=== PATIENT | female | born 1995 | race Caucasian/White ===

== ENCOUNTER 2020-07-04 11:26 | Outpatient (RCR) | payer OTHER, SELFPAY ==
[2020-07-03] MEDS: BETAMETHASONE SOD PHOS/ACETATE 30 MG/5 ML VIAL 12 MG IM (11:42)
[2020-07-04] MEDS: BETAMETHASONE SOD PHOS/ACETATE 30 MG/5 ML VIAL 12 MG IM (12:25)
== END 2020-07-22 08:30 | disposition home or self-care (01) ==
LOC: ANHOBOP 11:26
PROVIDERS: PCP Family Medicine; Visit Provider Obstetrics & Gynecology
DX: O36.8990 Maternal care for other specified fetal problems, unspecified trimester, not applicable or unspecified (principal); Z3A.00 Weeks of gestation of pregnancy not specified
CPT/HCPCS: 96372; J0702

== ENCOUNTER 2020-07-17 11:28 | Observation (INO) | payer OTHER, SELFPAY ==
--- NOTE | 2020-07-17 14:00 | PC.NURSE ---
See NST number for charting prior to 1400.
[2020-07-17] MEDS: DEXTROSE 5%/LACTATED RINGERS 1,000 ML 999 ML IV CONT (14:07)
[2020-07-17] MEDS: NIFEdipine 30 MG TAB.ER.24 PO (14:08)
[2020-07-17 14:10] VITALS: BP 132/75; PULSE 101
[2020-07-17 14:15] VITALS: BMI 37.4
[2020-07-17 15:00] VITALS: BP 118/76; PULSE 98
--- NOTE | 2020-07-20 16:19 | PM.OBTRLD ---
OB - Triage/Final Diagnosis Visit Information Reason for evaluation: threatened labor Evaluation Baseline heart rate: 144 Variability: Average (6-10) monitor accelerations: Present monitor decelerations: None Cervical dilation (cm): 0 Cervical effacement (%): 0 station: -3 Comments: iv fluids tocolysis oral Final Diagnosis (1) Threatened premature labor affecting , less than 37 weeks in third trimester, antepartum: Code(s): O47.03 - False labor before 37 completed weeks of gestation, third trimester Status: Acute
== END 2020-07-17 15:30 | disposition home or self-care (01) ==
PROVIDERS: Admitting Provider Obstetrics & Gynecology; PCP Family Medicine; Visit Provider Obstetrics & Gynecology
DX: O47.03 False labor before 37 completed weeks of gestation, third trimester (principal); Z3A.34 34 weeks gestation of pregnancy
CPT/HCPCS: 59025; 76819; A9270; G0378; G0379; J7121

== ENCOUNTER 2020-08-14 12:12 | Outpatient (RCR) | payer OTHER, SELFPAY ==
[2020-06-12 13:48] VITALS: BP 123/68; PULSE 89
[2020-06-19 15:10] VITALS: BP 128/70; PULSE 88
[2020-06-26 15:19] VITALS: BP 116/71; PULSE 95
[2020-07-02 15:54] VITALS: BP 131/78; PULSE 112
[2020-07-03 10:39] LABS: Basophils Percent Auto 0.2 % (0.2-1.2); Eosinophils Absolute Auto 0.1 K/mm3 (0-0.3); Eosinophils Percent Auto 0.7 % (0-4.4); Hematocrit 37.3 % (37.0-47.0); Hemoglobin 12.7 g/dL (12.0-15.0); Immature Granulocyte Absolute 0.06 K/mm3 (0.00-0.031); Immature Granulocyte Percent A 0.5 % (0-0.5); Lymphocytes Absolute Auto 1.94 K/mm3 (0.9-3.2); Lymphocytes Percent Auto 17.2 % (18.3-44.2); Mean Corpuscular Hemoglobin 32.4 pg (26-34); Mean Corpuscular Volume 95.2 fl (80-100); Mean Platelet Volume 11.2 fl (7.4-10.4); Monocytes Absolute Auto 0.5 K/mm3 (0.1-0.6); Monocytes Percent Auto 4.5 % (2.6-8.5); Neutrophils Absolute Auto 8.7 K/mm3 (1.3-6.7); Neutrophils Percent Auto 76.9 % (45.5-73.1); Platelet Count Result 198 k/mm3 (150-375); Red Blood Count 3.92 M/mm3 (4.2-5.4); Red Cell Distribution Width 13.7 % (11.5-14.5); White Blood Count 11.3 K/mm3 (4.5-10.0)
[2020-07-03 11:01] LABS: Add Urine Microscopic? YES; Appearance Urine Clear (Clear); Bacteria Urine Trace /hpf; Bilirubin Urine Negative (Negative); Blood Urine Negative (Negative); Color Urine Straw (Yellow); Glucose Urine UA 1+ mg/dL (Negative); Ketones Urine Negative (Negative); Leukocyte Esterase Ur Negative LEU/UL (NEGATIVE); Nitrate Urine Negative (Negative); Protein Urine Negative (Negative); RBC Urine 0-2 /hpf (0-2); Squamous Epithelial Cell Urine Moderate /hpf (Few); Urobilinogen Urine Negative mg/dL (<2.0); WBC Urine 0-3 /hpf (0-3)
[2020-07-03 11:12] LABS: Alanine Aminotransferase 15 U/L (4-35); Albumin Level 3.4 g/dL (3.5-5.1); Alkaline Phosphatase 127 U/L (38-126); Anion Gap 8 mmol/L (8-16); Aspartate Amino Transferase 19 U/L (14-36); Bilirubin,Total 0.4 mg/dL (0.2-1.3); Blood Urea Nitrogen 4 mg/dL (7-17); Calcium 9.1 mg/dL (8.4-10.2); Carbon Dioxide 24 mmol/L (22-30); Chloride 105 mmol/L (98-107); Estimated Glomerular Filt Rate > 60; Glucose 114 mg/dL (65-105); Potassium 3.4 mmol/L (3.4-5.0); Sodium 137 mmol/L (137-145); Uric Acid 4.2 mg/dL (2.5-7.5)
[2020-07-03 11:24] LABS: Specific Grav Ur 1.004 (1.001-1.035)
[2020-07-03 11:50] VITALS: BP 131/82; PULSE 99
[2020-07-04 12:13] VITALS: BP 122/69; PULSE 102
[2020-07-07 13:12] VITALS: BP 125/74; PULSE 94
[2020-07-14 12:07] VITALS: BP 128/79; PULSE 103
[2020-07-17 13:17] VITALS: BP 122/72; PULSE 101
[2020-07-21 12:10] VITALS: BP 119/72; PULSE 102
[2020-07-24 12:32] VITALS: BP 120/75; PULSE 99
--- NOTE | 2020-07-24 13:23 | PC.NURSE ---
2320- SPoke with Dr. Kitchen, BPP and KYM reviewed, orders to feed patient and if becomes reactive, may be discharged to home.
[2020-07-28 11:41] VITALS: BP 129/85; PULSE 94
[2020-07-31 13:44] VITALS: BP 125/86; PULSE 93
[2020-08-04 12:22] VITALS: BP 126/73; PULSE 85
[2020-08-11 12:32] VITALS: BP 124/73; PULSE 100
--- NOTE | ~2020-08-14 | US_ITS ---
EXAMINATION: US OB BPP wo non-stress DATE: 06/26/2020 15:14 INDICATION: Still at the third trimester during previous . Current in third trimester. TECHNIQUE: Real-time pelvic ultrasound was performed. The interpreting radiologist was not present fo r the study. COMPARISON: 06/19/2020 FINDINGS: There is a single living fetus in vertex presentation. The placenta is anterior. heart rate is 137 beats per minute (bpm). Biophysical profile performed by the technologist: breathing (30 sec sustained breathing in 30 minutes): 2 out of 2 movement (3 gross body movements in 30 minutes): 2 out of 2 tone (one episode of iamfqpc-wcwsmkdxt-uucthei limb movement): 2 out of 2 Amniotic fluid pocket (2 cm): 2 out of 2 Total score: 8 out of 8 IMPRESSION: 1. Single living fetus in vertex presentation with heart rate of 137 bpm. 2. Biophysical profile 8 out of 8. Reviewed, dictated and finalized at location B.
--- NOTE | ~2020-08-14 | US_ITS ---
EXAMINATION: US OB BPP wo non-stress DATE: 07/17/2020 12:55 INDICATION: History of stillborn. Third trimester. TECHNIQUE: Real-time pelvic ultrasound was performed. COMPARISON: Ultrasound 07/14/2020 FINDINGS: There is a single living fetus in vertex presentation. The placenta is anterior. heart rate is 139 beats per minute (bpm). Biophysical profile performed by the technologist: breathing (30 sec sustained breathing in 30 minutes): 2 out of 2 movement (3 gross body movements in 30 minutes): 2 out of 2 tone (one episode of cdjwkum-jysjhbfii-kuxfnsc limb movement): 2 out of 2 Amniotic fluid pocket (2 cm): 2 out of 2 Total score: 8 out of 8 IMPRESSION: 1. Single living fetus in vertex presentation. 2. Biophysical profile 8 out of 8. Reviewed, dictated and finalized at location A. DRYER MAINTAINER
--- NOTE | ~2020-08-14 | US_ITS ---
EXAMINATION: US OB BPP wo non-stress DATE: 07/10/2020 15:31 INDICATION: History of stillbirth. Third trimester. TECHNIQUE: Real-time pelvic ultrasound was performed. COMPARISON: Ultrasound 07/03/2020 FINDINGS: There is a single living fetus in vertex presentation. The placenta is anterior. heart rate is 150 beats per minute (bpm). Biophysical profile performed by the technologist: breathing (30 sec sustained breathing in 30 minutes): 2 out of 2 movement (3 gross body movements in 30 minutes): 2 out of 2 tone (one episode of guigkyo-jpvfwtwvl-hwdprsm limb movement): 2 out of 2 Amniotic fluid pocket (2 cm): 2 out of 2 Total score: 8 out of 8 IMPRESSION: 1. Single living fetus in vertex presentation. 2. Biophysical profile 8 out of 8. Reviewed, dictated and finalized at location A. IX ENGINEER
--- NOTE | ~2020-08-14 | US_ITS ---
EXAMINATION: US OB BPP wo non-stress EXAM DATE: 07/14/2020 12:27 INDICATION: non reactive nst . 3rd trimester. TECHNIQUE: Pelvic obstetrical transabdominal sonogram was performed by a technologist. There are mu ltiple grayscale and Doppler images available for interpretation. Comparison is made to prior examina tion from 07/10/2020. FINDINGS: There is a single fetus identified in vertex presentation with a heart rate of 144 beats pe r minute. The placenta is located in the anterior position. There is no sonographic evidence of retr oplacental hemorrhage identified. Subjectively expected amount of amniotic fluid. BIOPHYSICAL PROFILE (performed by the technologist) breathing (30 sec sustained breathing in 30 minutes): 2 out of 2 movement (3 gross body movements in 30 minutes): 2 out of 2 tone (one episode of wgiauvo-ldbhrdgfh-rwnaocb limb movement): 2 out of 2 Amniotic fluid pocket (2 cm): 2 out of 2 Total score: 8 out of 8 IMPRESSION: 1. Single fetus with heart rate of 144 bpm. 2. Normal biophysical profile score of 8 out of 8. Reviewed, dictated and finalized at location A. RTING SPECIALIST
--- NOTE | ~2020-08-14 | US_ITS ---
EXAMINATION: US OB follow up w BPP DATE: 07/02/2020 15:05 INDICATION: Assess biophysical profile, estimated weight and amniotic fluid index during third trimester TECHNIQUE: Real-time pelvic ultrasound was performed. The interpreting radiologist was not present fo r the study. COMPARISON: None. FINDINGS: There is a single living fetus in vertex presentation. The placenta is anterior. heart rate is 139 beats per minute (bpm). Normal amniotic fluid index of 18.1 cm (5th%-95%: 8.6-24.2 cm at 32 week s estimated gestational age). The following biometric data were obtained: BPD: 8.5 cm -> 34 weeks 1 days Head circumference: 32.3 cm -> 36 weeks 4 days Abdominal circumference: 31.7 cm -> 35 weeks 4 days Femur length: 6.5 cm -> 33 weeks 3 days These measurements are concordant. Head circumference to abdominal circumference ratio: 1.02 (normal range 0.93-1.11). Estimated weight: 2552 g (+/-) 383 g, 5 lbs 10oz (+/-) 14 oz Biophysical profile performed by the technologist: breathing (30 sec sustained breathing in 30 minutes): 0 out of 2 movement (3 gross body movements in 30 minutes: 2 out of 2 tone (one episode of qklgtgv-bkawltaob-dsogfll limb movement): 2 out of 2 Amniotic fluid pocket (2 cm): 2 out of 2 Total score: 6 out of 8 IMPRESSION: 1. Single living fetus in vertex presentation. 2. Normal amniotic fluid index of 18.1 cm. 3. Biophysical profile 6 out of 8. No points given for 30 seconds of sustained breathing over 30 minutes of observation. 4. Estimated weight is >97th percentile by Hadlock criteria when 08/26/2020 is used as the karishma mated date of delivery (LAMONT). Please correlate with clinical information or earlier ultrasounds for m ost accurate LAMONT. Reviewed, dictated and finalized at location A. INSULATOR HELPER IMPRESSION: 1. Single living fetus in vertex presentation. 2. Normal amniotic fluid index of 18.1 cm. 3. Biophysical profile 6 out of 8. No points given for 30 seconds of sustained breathing over 30 minutes of observation. 4. Estimated weight is >97th percentile by Hadlock criteria when 08/26/20 20 is used as the estimated date of delivery (LAMONT). Please correlate with clini jordon information or earlier ultrasounds for most accurate LAMONT.
--- NOTE | ~2020-08-14 | US_ITS ---
EXAMINATION: US OB limited w BPP DATE: 07/24/2020 12:53 INDICATION: Nonreactive nonstress test. Assess biophysical profile and amniotic fluid index. TECHNIQUE: Real-time pelvic ultrasound was performed. The interpreting radiologist was not present fo r the study. COMPARISON: 07/17/2020 FINDINGS: There is a single living fetus in vertex presentation. The placenta is anterior. heart rate is 159 beats per minute (bpm). Amniotic fluid index measures 23.0 cm which is normal (5th%-95%: 7.9-24. 9 cm at 35 weeks estimated gestational age) Biophysical profile performed by the technologist: breathing (30 sec sustained breathing in 30 minutes): 2 out of 2 movement (3 gross body movements in 30 minutes): 2 out of 2 tone (one episode of wiztyzc-gqimkehcr-djthjis limb movement): 2 out of 2 Amniotic fluid pocket (2 cm): 2 out of 2 Total score: 8 out of 8 IMPRESSION: 1. Single living fetus in vertex presentation with heart rate of 159 bpm. 2. Biophysical profile 8 out of 8. 3. Normal amniotic fluid index of 23.0 cm. Reviewed, dictated and finalized at location A. DDED LINUX DEVELOPER
--- NOTE | ~2020-08-14 | US_ITS ---
EXAMINATION: US OB BPP wo non-stress DATE: 08/14/2020 12:59 INDICATION: Prior loss. Third trimester. TECHNIQUE: Real-time pelvic ultrasound was performed. COMPARISON: Ultrasound 08/07/2020 FINDINGS: There is a single living fetus in vertex presentation. The placenta is anterior. heart rate is 137 beats per minute (bpm). Biophysical profile performed by the technologist: breathing (30 sec sustained breathing in 30 minutes): 2 out of 2 movement (3 gross body movements in 30 minutes): 2 out of 2 tone (one episode of zlpppjt-saolxvemi-aiglnpf limb movement): 2 out of 2 Amniotic fluid pocket (2 cm): 2 out of 2 Total score: 8 out of 8 IMPRESSION: 1. Single living fetus in vertex presentation. 2. Biophysical profile 8 out of 8. Reviewed, dictated and finalized at location A. ENTARY READING SPECIALIST
--- NOTE | ~2020-08-14 | US_ITS ---
EXAMINATION: US OB BPP wo non-stress EXAM DATE: 07/31/2020 14:12 INDICATION: Previous stillborn. 3rd trimester. TECHNIQUE: Pelvic obstetrical transabdominal sonogram was performed by a technologist. There are mu ltiple grayscale and Doppler images available for interpretation. Comparison is made to prior examina tion from 07/24/2020. FINDINGS: There is a single fetus identified in vertex presentation with a heart rate of 148 beats pe r minute. The placenta is located in the anterior position. There is no sonographic evidence of retr oplacental hemorrhage identified. BIOPHYSICAL PROFILE (performed by the technologist) breathing (30 sec sustained breathing in 30 minutes): 2 out of 2 movement (3 gross body movements in 30 minutes): 2 out of 2 tone (one episode of dohytju-pxlmymjxm-tgywkyd limb movement): 2 out of 2 Amniotic fluid pocket (2 cm): 2 out of 2 Total score: 8 out of 8 IMPRESSION: 1. Single fetus with heart rate of 148 bpm. 2. Normal biophysical profile score of 8 out of 8. Reviewed, dictated and finalized at location A. ING STONECUTTER
--- NOTE | ~2020-08-14 | US_ITS ---
EXAMINATION: US OB BPP wo non-stress DATE: 08/07/2020 13:04 INDICATION: History of loss. Third trimester. TECHNIQUE: Real-time pelvic ultrasound was performed. COMPARISON: Ultrasound 07/31/20 FINDINGS: There is a single living fetus in vertex presentation. The placenta is anterior. heart rate is 146 beats per minute (bpm). Biophysical profile performed by the technologist: breathing (30 sec sustained breathing in 30 minutes): 2 out of 2 movement (3 gross body movements in 30 minutes): 2 out of 2 tone (one episode of fvdffke-hzwgyqtkr-glgttiv limb movement): 2 out of 2 Amniotic fluid pocket (2 cm): 2 out of 2 Total score: 8 out of 8 IMPRESSION: 1. Single living fetus in vertex presentation. 2. Biophysical profile 8 out of 8. Reviewed, dictated and finalized at location B. R INTELLIGENCE ANALYST
--- NOTE | ~2020-08-14 | US_ITS ---
EXAMINATION: US OB BPP wo non-stress DATE: 07/03/2020 11:16 INDICATION: Third trimester assessment, history of demise, abnormal biophysical profi le yesterday TECHNIQUE: Real-time pelvic ultrasound was performed. The interpreting radiologist was not present fo r the study. COMPARISON: 07/02/2020 FINDINGS: There is a single living fetus in vertex presentation. The placenta is anterior. heart rate is 157 beats per minute (bpm). Biophysical profile performed by the technologist: breathing (30 sec sustained breathing in 30 minutes): 2 out of 2 movement (3 gross body movements in 30 minutes): 2 out of 2 tone (one episode of ahgrkdp-rjrlldmlx-yijrvvp limb movement): 2 out of 2 Amniotic fluid pocket (2 cm): 2 out of 2 Total score: 8 out of 8 IMPRESSION: 1. Single living fetus in vertex presentation. 2. Biophysical profile 8 out of 8. Reviewed, dictated and finalized at location A. STRENGTH INSPECTOR
--- NOTE | ~2020-08-14 | US_ITS ---
EXAMINATION: US OB BPP wo non-stress DATE: 06/19/2020 15:05 INDICATION: Prior stillborn at 30 weeks. Current in third trimester. TECHNIQUE: Real-time pelvic ultrasound was performed. COMPARISON: None. FINDINGS: There is a single living fetus in vertex presentation. The placenta is anterior. heart rate is 142 beats per minute (bpm). Biophysical profile performed by the technologist: breathing (30 sec sustained breathing in 30 minutes): 2 out of 2 movement (3 gross body movements in 30 minutes): 2 out of 2 tone (one episode of fxoekzu-ocugqjcrs-xvinmyq limb movement): 2 out of 2 Amniotic fluid pocket (2 cm): 2 out of 2 Total score: 8 out of 8 IMPRESSION: 1. Single living fetus in vertex presentation. 2. Biophysical profile 8 out of 8. Reviewed, dictated and finalized at location A.
[2020-08-14 13:00] VITALS: BP 127/75; PULSE 104
== END 2020-08-18 07:14 | disposition home or self-care (01) ==
LOC: ANHOBOP 12:12
PROVIDERS: PCP Family Medicine; Visit Provider Obstetrics & Gynecology
DX: O09.293 Supervision of pregnancy with other poor reproductive or obstetric history, third trimester (principal); Z3A.29 29 weeks gestation of pregnancy; Z3A.30 30 weeks gestation of pregnancy; Z3A.31 31 weeks gestation of pregnancy; O36.63X0 Maternal care for excessive fetal growth, third trimester, not applicable or unspecified; Z3A.32 32 weeks gestation of pregnancy; Z3A.33 33 weeks gestation of pregnancy; Z3A.34 34 weeks gestation of pregnancy; Z3A.35 35 weeks gestation of pregnancy; Z3A.36 36 weeks gestation of pregnancy; Z3A.37 37 weeks gestation of pregnancy; Z3A.38 38 weeks gestation of pregnancy
CPT/HCPCS: 36415; 59025; 76815; 76816; 76819; 80053; 81001; 84550; 85025; 87086; 87088; 96372; J0702

== ENCOUNTER 2020-08-17 18:06 | Inpatient (IN) | payer OTHER, SELFPAY ==
[2020-08-17] VITALS (33 sets, daily range): BP systolic 102–188; BP diastolic 59–143; PULSE 67–235; RESP 13–17; TEMP 35.9–36.6; O2SAT 99–100; BMI 39.4
--- OUTSIDE RECORDS SUMMARY | 2020-08-17 18:39 | XMS_ITS | Encounter Summary ---
:1995 Author Care Team Providers Name Role Phone Gary Kitchen MD Silver Recovery Operator [phone] Reason for Visit ob routine visit Assessment and Plan 1. Routine care refused flu shot. ? urinalysis, dipstick ? Boostrix Tdap 2.5 Lf unit- 8 mcg-5 Lf/0.5 mL intramuscular syringe 2. Heterozygous methylenetetrahy drofolate reductase mutation 3. Acid reflux ? famotidine 20 mg tablet 4. Abnormal glucose tolerance te st GTT elevated at 150 on 05/18/20 20. ? glucose tolerance test, 4 specimens - fasting and 3hr gtt 5. 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 US, obstetric, 3rd trimest er ? US, obstetric, biophysical profile + non-stress test - weekly Discussion Note: None recorded.Patient educational handouts: No information available. Plan of Care Reminders Provider Appointments 15 M jono Kitchen, 09/02/2020 3:15PM Lab Urinalysis, In-Of fice Order Dipstick 05/28/2020 ? Glucose [facility] Tolerance Test, 4 05/28/2020 Specimens Referral None recorded. ? ? Procedu
--- OUTSIDE RECORDS SUMMARY | 2020-08-17 18:39 | XMS_ITS | Encounter Summary ---
:1995 Author Care Team Providers Name Role Phone Gary Kitchen MD Computer Information Systems Professor [phone] Reason for Visit ob routine visit Assessment and Plan 1. Routine care Refused flu shot. ? urinalysis, dipstick 2. Deliveries by repeat c/s 3. History of stillbirth NST WEEKLY, KICK COUNTS 4. Heterozygous methylenetetrahy drofolate reductase mutation Discussion Note: None recorded.Patient educational handouts: No information available. Plan of Care Reminders Provider Appointments 15 M jono Kitchen, 09/02/2020 3:15PM Lab Urinalysis, In-Of fice Order Dipstick 07/13/2020 Referral None recorded. ? ? Procedures None recorded. ? ? Surgeries None recorded. ? ? Imaging None recorded. ? ? Medications Name Start Date ? ? albuterol sulfate HFA 90 mcg/actuation aerosol inhaler ? INHALE 2 PUFFS BY MOUTH EVERY 4 HOURS aspirin 81 mg tablet,delayed release ? TK 1 T PO QD Calcium 600 with Vitamin D3 600 mg (1,500 mg)-400 unit capsule ? Take 1 capsule twice a day by oral route.
--- OUTSIDE RECORDS SUMMARY | 2020-08-17 18:39 | XMS_ITS | Encounter Summary ---
:1995 Author Care Team Providers Name Role Phone Gary Kitchen MD Outboard Motors Experimental Mechanic [phone] Reason for Visit ob routine visit Assessment and Plan 1. Routine care Declined flu vaccine 05/28/20. ? urinalysis, dipstick ? culture, vaginal/rectal, s treptococcus group B - PLEASE FAX RESULTS TO [facility] [phone] ? bacterial vaginosis + vagi nitis panel, vaginal - PLEASE FAX RESULTS TO [facility] [phone] ? HSV (1+2) DNA, qual, PCR, unspecified specimen - PLEASE FAX RESULTS TO [facility] AT [phone] 2. Deliveries by repeat c/s scheduled for 08/14 3. Heterozygous methylenetetrahy drofolate reductase mutation ? cyanocobalamin (vit B-12) 1,000 mcg/mL injection solution 4. Group B Streptococcus carrier 5. Asthma ? controlling your asthma: c are instructions ? learning about asthma 6. History of stillbirth NST TWICE WEEKLY, KICK COUNTS DAILY, BIOPHYSICAL PROFILE WEEKLY Discussion Note: None recorded. Plan of Care Reminders Provider Appointments 15 M jono Kitchen, 09/02/2020 3:15PM Lab Urinalysis, In-Of fice Order Dipstick 07/27/2020 ? Culture, [facility] Vaginal/rectal, 07/27/2020
--- OUTSIDE RECORDS SUMMARY | 2020-08-17 18:39 | XMS_ITS | Encounter Summary ---
:1995 Author Care Team Providers Name Role Phone Gary Kitchen MD Teacher Of The Sight Impaired [phone] Reason for Visit ob routine visit Assessment and Plan 1. Routine care Refused flu shot. ? urinalysis, dipstick ? US, obstetric, 3rd trimest er 2. Abnormal progesterone 3. Deliveries by repeat c/s 4. Group B Streptococcus carrier 5. History of stillbirth NST WEEKLY, KICK COUNTS 6. Heterozygous methylenetetrahy drofolate reductase mutation ? cyanocobalamin (vit B-12) 1,000 mcg/mL injection solution 7. Impaired glucose tolerance NORMAL 3hr GTT ? prediabetes: care instruct ions Discussion Note: None recorded. Plan of Care Reminders Provider Appointments 15 M jono Kitchen, 09/02/2020 3:15PM Lab Urinalysis, In-Of fice Order Dipstick 06/29/2020 Referral None recorded. ? ? Procedures None recorded. ? ? Surgeries None recorded. ? ? Imaging US, Obstetric, [facility] 3Rd Trimester 06/29/2020 Med
--- OUTSIDE RECORDS SUMMARY | 2020-08-17 18:39 | XMS_ITS | Encounter Summary ---
:1995 Author Care Team Providers Name Role Phone Gary Kitchen MD Bee Tender [phone] Reason for Visit ob routine visit Assessment and Plan 1. Routine care CHRISTINA at 38w. complica gladys by abnormal progesterone, MTHFR, subchorionic hematoma (resolved). Pt den ies contractions, LOF. + movement. Getting weekly NST due to history of sti llbirth. Repeat scheduled for 08/19. ? urinalysis, dipstick 2. Deliveries by Repeat scheduled for 08/[address] Mckeon. 3. History of stillbirth Prior stillbirth at 30 weeks g estation. Monthly US and weekly testing have been normal. 4. 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 Continue ASA and folic acid as prescribed. B12 injection given 07/27. 5. Family planning surveillance Patient would like depo shot f or PP control. Ordered today and will be given at pp visit scheduled on 09/02. ? medroxyprogesterone 150 mg /mL intramuscular suspension Discussion Note: None recorded.Patient educational handouts: No information available. Plan of Care Reminders Provider Appointments 15 M jono Kitchen, 09/02/2020 3:15PM Lab Urinalysis, In-Of fice Order Dipstick 08/12/2020 Referral None recorded. ? ?
--- OUTSIDE RECORDS SUMMARY | 2020-08-17 18:39 | XMS_ITS | Encounter Summary ---
:1995 Author Care Team Providers Name Role Phone Gary Kitchen MD Slag Mixer [phone] Reason for Visit ob routine visit Assessment and Plan 1. Routine care Declined flu vaccine 05/28/20. ? urinalysis, dipstick 2. History of stillbirth NST TWICE WEEKLY, KICK COUNTS DAILY, BIOPHYSICAL PROFILE WEEKLY 3. Heterozygous methylenetetrahy drofolate reductase mutation 4. Deliveries by repeat c/s scheduled for 08/14 5. Abnormal progesterone 6. Group B Streptococcus carrier 7. Impaired glucose tolerance NORMAL 3hr GTT Discussion Note: None recorded.Patient educational handouts: No information available. Plan of Care Reminders Provider Appointments 15 M jono Kitchen, 09/02/2020 3:15PM Lab Urinalysis, In-Of fice Order Dipstick 08/05/2020 Referral None recorded. ? ? Procedures None recorded. ? ? Surgeries None recorded. ? ? Imaging None recorded. ? ? Medications Name Start Date ? ? albuterol sulfate HFA 90 mcg/actuation aerosol inhaler ?
--- OUTSIDE RECORDS SUMMARY | 2020-08-17 18:39 | XMS_ITS ---
:1995 Author Care Team Providers Name Role Phone RUTH DANGELO MD Food Safety Field Specialist [phone] Allergies Code Code System Name Reaction Severity Status Onset 2670 RxNorm Codeine Anaphylaxis Severe Active ? 6130 RxNorm Ketamine Hallucinations Severe Active ? Medications Name Status Start Date Stop Date ? ? acyclovir 400 mg tablet Completed ? 09/27/19 17 Aerospan 80 mcg/actuation HFA aerosol Completed ? 12/31/2019 inhaler albuterol sulfate HFA 90 mcg/actuation Active ? Not available aerosol inhaler Lizzette (28) 90 mcg-20 mcg tablet Completed ? 12/31/2019 amoxicillin 500 mg capsule Completed ? 12/30 amoxicillin 875 mg tablet Completed ? 2016 aspirin 81 mg tablet,delayed release Active ? Not available TK 1 T PO QD azithromycin 250 mg tablet Completed ? 09/27 Blisovi 24 Fe 1 mg-20 mcg (24)/75 mg Completed ? 12/31/2019 (4) tablet Calcium 600 with Vitamin D3 600 mg (1,500 mg)-400 unit capsule A ctive ? Not available Take 1 capsule twice a day by oral route. calcium carbonate-vitamin D3 600 mg (1,500 mg)-800 unit tablet C ompleted ? 12/31/2019 Take 1 tablet twice a day by oral route for 30 days. cyanocobalamin (vit B-12) 1,000 mcg/mL injection solution Active ? Not available Inject 1 mL every month by subcutaneous route. escitalopram 10 mg tablet Active ? Not av ailable famotidine 20 mg tablet Active ? Not avai lable famotidine 40 mg tablet Completed ? 12/31/19 20 ferrous gluconate 324 m
--- OUTSIDE RECORDS SUMMARY | 2020-08-17 18:39 | XMS_ITS | Encounter Summary ---
:1995 Author Care Team Providers Name Role Phone Gary Kitchen MD Placement Manager [phone] Reason for Visit ob routine visit patient complains of some numbness in th e right leg,some contractions over the weekend Assessment and Plan 1. Routine care Declined flu vaccine 05/28/20. NSTs scheduled for 07/21/20 and 07/24. ? urinalysis, dipstick 2. Threatened premature labor - not delivered Improved with increased hydrat ion. Rx nifedipine to take as needed. ? nifedipine ER 30 mg tablet ,extended release Discussion Note: None recorded.Patient educational handouts: No information available. Plan of Care Reminders Provider Appointments 15 M jono Kitchen, 09/02/2020 3:15PM Lab Urinalysis, In-Of fice Order Dipstick 07/20/2020 Referral None recorded. ? ? Procedures None recorded. ? ? Surgeries None recorded. ? ? Imaging None recorded. ? ? Medications Name Start Date ? ? albuterol sulfate HFA 90 mcg/actuation aerosol inhaler ? INHALE 2 PUFFS BY MOUTH EVERY 4 HOURS aspirin 81 mg tablet,delayed release ? TK 1 T PO QD
--- OUTSIDE RECORDS SUMMARY | 2020-08-17 18:39 | XMS_ITS | Encounter Summary ---
:1995 Author Care Team Providers Name Role Phone Gary Kitchen MD Malware Analyst [phone] Reason for Visit ob routine visit Assessment and Plan 1. Routine care refused flu shot. ? urinalysis, dipstick 2. Impaired glucose tolerance NORMAL 3hr GTT ? prediabetes: care instruct ions 3. Deliveries by repeat c/s ? section (SURG) 4. Heterozygous methylenetetrahy drofolate reductase mutation 5. Group B Streptococcus carrier 6. 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 non-stress test - WEEKLY N ST Discussion Note: None recorded. Plan of Care Reminders Provider Appointments 15 M jono Kitchen, 09/02/2020 3:15PM Lab Urinalysis, In-Of fice Order Dipstick 06/11/2020 Referral None recorded. ? ? Procedures None recorded. ? ? Surgeries Jae Section (SURG) 08/19/2020 [facility] Imaging Non-stress [place] on Test 06/11/2020
--- OUTSIDE RECORDS SUMMARY | 2020-08-17 18:40 | XMS_ITS | Encounter Summary ---
:1995 Author Care Team Providers Name Role Phone Gary Kitchen MD Product Manager Financial Services [phone] Reason for Visit ob routine visit Assessment and Plan 1. Routine care CHRISTINA at 25 weeks 5 days. Pregna ncy complicated by abnormal progesterone, MTHFR, subchorionic hematoma (resolved), GBS. Pt denies contractions, LOF. + movement. Reassuring fundal height and F HT present at 145. GCT completed today. Labs drawn. Kick counts discussed. B12 inject ion given. US order given, to be scheduled around 30 weeks. RTC in 2 weeks. Tdap to be given at next visit. ? US, obstetric, 3rd trimest er ? counting your baby's kicks : care instructions ? kick counts ? CBC ? urinalysis, dipstick 2. screening ? glucose tolerance test, po st-50G, 1-hour 3. Venereal disease screening ? RPR (rapid plasma reagin), serum ? HIV 1+2 AB + HIV 1 p24 Ag, qualitative immunoassay, serum 4. 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 Start progesterone, ASA, and folic acid as pre scribed. B12 injection given today. ? cyanocobalamin (vit B-12) 1,000 mcg/mL injection solution 5. History of stillbirth Prior stillbirth at 30 weeks g estation. Will start monthly Level 2 US and weekly testing at next visits. Discussion Note: None recorded. Plan of Care Reminders Provider Appointments 15 M
--- NOTE | 2020-08-17 18:55 | LDADM ---
This patient, Kiara Araujo, was admitted to Labor/Delivery/Recovery 120 on 08/17/20 at 18:06. Plans for labor, pain management and were discussed with patient. Patient/family oriented to hospital policies and general routines including ID bracelet, bed and alarms, visiting hours, pain management, procedures, bathroom and other care routines, personal items, smoking policy, room service/diet and guest tray routines, security routines, and visiting hours. Patient/Family are encouraged to report perceived risks to care and to ask questions if they do not understand what they are told or what they should do. See OBIX for further documentation.
[2020-08-17 19:15] LABS: Basophils Percent Auto 0.2 % (0.2-1.2); Eosinophils Absolute Auto 0.1 K/mm3 (0-0.3); Eosinophils Percent Auto 0.7 % (0-4.4); Hematocrit 38.2 % (37.0-47.0); Hemoglobin 13.4 g/dL (12.0-15.0); Immature Granulocyte Absolute 0.05 K/mm3 (0.00-0.031); Immature Granulocyte Percent A 0.4 % (0-0.5); Lymphocytes Absolute Auto 2.23 K/mm3 (0.9-3.2); Mean Corpuscular HGB Conc 35.1 g/dl (32-36); Mean Corpuscular Hemoglobin 33.2 pg (26-34); Mean Corpuscular Volume 94.6 fl (80-100); Monocytes Absolute Auto 0.7 K/mm3 (0.1-0.6); Monocytes Percent Auto 5.8 % (2.6-8.5); Neutrophils Absolute Auto 8.7 K/mm3 (1.3-6.7); Neutrophils Percent Auto 73.9 % (45.5-73.1); Nucleated Red Blood Cells Perc 0.2 % (0.0-0.2); Platelet Count Result 200 k/mm3 (150-375); Red Blood Count 4.04 M/mm3 (4.2-5.4); Red Cell Distribution Width 15.3 % (11.5-14.5); White Blood Count 11.7 K/mm3 (4.5-10.0)
[2020-08-17] MEDS: LACTATED RINGERS 1,000 ML 125 ML IV CONT (19:16)
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
--- NOTE | 2020-08-17 19:29 | WPDANESEPP ---
Anes - Eval Pre Procedure Procedure: Operation Date: 08/17/20 20:00 Proposed Procedures p Section - Meryl Merlos MD Date/Time: 08/17/20 19:29 Pre Op Diagnosis: C Section Patient Data Age: 25 Gender: F Height: 1.52 m Weight: 91.5 kg Last Vital Signs Pulse 98 08/17/20 19:26 BP 134/87 08/17/20 19:26 Allergies Allergy/AdvReac Type Severity Reaction Status Date / Time codeine Allergy Hives Verified 07/04/20 11:42 ketamine AdvReac Hallucinati Verified 07/04/20 11:42 ng Home Medications Medication Instructions Recorded Confirmed Type Vitamin Plus Low Iron 1 tablet PO DAILY 07/04/20 07/31/20 History albuterol sulfate 2 puff INHALATION Q4H PRN 07/04/20 07/31/20 History aspirin 81 mg PO DAILY 07/04/20 07/31/20 History calcium carbonate-vitamin D3 1 tablet PO BID 07/04/20 07/31/20 History [Oysco 500/D] famotidine 20 mg PO BID 07/04/20 07/31/20 History folic acid 4 mg PO DAILY 07/04/20 07/31/20 History ondansetron HCl 4 mg PO Q8H PRN 07/04/20 07/31/20 History progesterone micronized 200 mg VAGINAL BID 07/04/20 07/31/20 History nifedipine 30 mg PO DAILY 07/31/20 07/31/20 History Laboratory Tests 08/17/20 08/17/20 08/17/20 19:11 19:11 19:11 WBC 11.7 K/mm3 H K/mm3 (4.5-10.0) RBC 4.04 M/mm3 L M/mm3 (4.2-5.4) Hgb 13.4 g/dL g/dL (12.0-15.0) Hct 38.2 % % (37.0-47.0) MCV 94.6 fl fl (80-100) MCH 33.2 pg pg (26-34) MCHC 35.1 g/dl g/dl (32-36) RDW 15.3 % H % (11.5-14.5) Plt Count 200 k/mm3 k/mm3 (150-375) MPV 12.0 fl H fl (7.4-10.4) Immature Gran % (Auto) 0.4 % % (0-0.5) Neut % (Auto) 73.9 % H % (45.5-73.1) Lymph % (Auto) 19.0 % % (18.3-44.2) [place] % (Auto) 5.8 % % (2.6-8.5) Eos % (Auto) 0.7 % % (0-4.4) Baso % (Auto) 0.2 % % (0.2-1.2) Lymph # (Auto) 2.23 K/mm3 K/mm3 (0.9-3.2) [place] # (Auto) 0.7 K/mm3 H K/mm3 (0.1-0.6) Eos # (Auto) 0.1 K/mm3 K/mm3 (0-0.3) Baso # (Auto) 0.0 K/mm3 K/mm3 (0.0-0.1) Abs Immat Gran (auto) 0.05 K/mm3 H K/mm3 (0.00-0.031) Absolute Neuts (auto) 8.7 K/mm3 H K/mm3 (1.3-6.7) Absolute Nucleated RBC 0.0 K/mm3 K/mm3 (0.0-0.012) Nucleated RBC % 0.2 % % (0.0-0.2) RPR Pending HIV 1&2 Ab/P24 Ag 4thGn Pending Patient hx anesthesia problems: none Family hx anesthesia problems: none [facility] Family History Family History (Updated 07/31/20 @ 12:31 by Ananda Galo RN) Other No pertinent family history Social History Social History Smoking status: Former smoker Tobacco type: cigarettes Substance use: never Gender identity (if verbalized by the patient): Female Spiritual care concerns: No Exam Day of Procedure 08/17/20 19:29 Patient weight: obese Heart: regular rate and rhythm Lungs: normal air movement Airway: Mallampati scale class II Neurological: alert and oriented
--- NOTE | 2020-08-17 19:39 | WPDHPUPDATE1 ---
History and Physical Update Update Date/Time: 08/17/20 19:39 History and Physical has been reviewed, including an updated exam of the patient. There are NO changes in the patient's condition. Risks, benefits, and alternatives have been discussed and questions answered. Patient agrees to proceed with procedure.
--- NOTE | 2020-08-17 19:57 | WPDANESEFPP ---
Anes - Eval Final PreProcedure Day of Procedure 08/17/20 19:57 Patient weight: obese Heart: regular rate and rhythm Lungs: clear to auscultation Airway: Mallampati scale class II Neurological: alert and oriented ASA classification: II Emergent: no Anesthesia type and monitoring: regional spinal and standard monitoring Informed Consent: The patient's anesthetic plan and its attendant risks and benefits were discussed with the patient/family/POA. Questions were solicited and answers provided to the satisfaction of the patient/family/POA.
[2020-08-17 20:09] LABS: HIV 1/2 Ab P24 Ag Result Negative (Negative)
--- NOTE | 2020-08-17 21:27 | PM.OBPRVD ---
OB - Delivery Note Procedure Delivery date: 08/17/20 Procedure: Procedures Operation Date: 08/17/20 20:00 <No data on this case meets the specified criteria> Operation Date: 08/17/20 20:00 Actual Procedures Side Surgeon p Section Not Applicable Meryl Merlos MD events: Polyhydramnios (rupture of membranes; ROM+ positive) Induction method: none Delivery monitor: external FHT and external uterine Route of delivery: Quantitative Blood Loss (ml): 535 Anesthesia type: Spinal Disposition: PACU Narrative: She was counseled on all risks and benefits in detail. She was taken to the operating room where spinal epidural was placed. She was then prepped and draped in the normal sterile fashion. She received 2g Ancef and a time out was performed. A Pfannenstiel incision was made in the skin and carried down to the underlying fascia. The fascia was nicked on either side of the midline and the fascial incision was extended laterally and superiorly. The fascia was then elevated and the underlying rectus muscles were dissected off the fascia, superiorly and inferiorly -- extensive subcutaneous adhesions were noted. The rectus muscles were then attempted to be in the midline using Metzenbaum scissors to help dissect the thick adhesions. The peritoneum was then identified and entered bluntly. Multiple adhesions were noted; small areas of the omentum were attached to the anterior abdominal wall which were taken down using Bovie cautery. The bladder was also noted to have adhesions to the mid uterus which were also taken down very carefully using Metzenbaum scissors. Once adequate exposure was obtained, a bladder blade and Rich were used to obtain good visualization of the uterus. The bladder flap was further created. A low transverse incision was made on the lower uterine segment and the incision was extended laterally and superiorly using bandage scissors. Copious amounts of clear fluid was noted (2 L). The occiput was brought to the hysterotomy and the head was delivered. The shoulder and body then followed without complications. The fetus had spontaneous cry and the mouth and nose were bulb suctioned. The cord was clamped and cut and the fetus was handed off to the awaiting pediatric nurse. A segment of the cord was collected for cord gases. The remaining cord blood was collected for typing. With pitocin infusing, the placenta delivered with gentle traction on the cord without complications. The uterus was then cleared out of all clots and debris using a clean, moist lap. A small extension on the left lower side of the hysterotomy was noted and repaired using 0 Vicryl in an interlocking fashion. The hysterotomy was then repaired in an interlocking fashion using 0 Vicryl. A second layer imbricating suture was then made using 0 Vicryl. The hysterotomy was found to be hemostatic and good uterine tone was noted. The bilateral adnexa were examined and found to be normal. The pelvis was cleared of all clots and fluid. The retractors were removed from the abdomen. The peritoneum, muscle, and fascia were examined and made hemostatic with bovie cautery. The fascia was then repaired using two separate 0 Vicryl suture in a running fashion. The subcutaneous tissue was then irrigated and made hemostatic with bovie cautery. The subcutaneous tissue was then reapproximated using 2-0 Vicryl. The skin was then closed using 4-0 Monocryl in a running subcuticular fashion. The incision was cleaned and a Mepilex dressing was then placed over the incision. Sponge, lap, needle and instrument counts were correct at the end of the procedure x2. The patient tolerated the procedure well and was taken to recovery in a stable condition. [place] Baby Date of : 08/17/20 Time of : 20:32 Weeks of gestation at delivery: 38 Infant gender: Male Weight (pounds): 8 Weight (ounces): 13 presentation: vertex Placenta delivery desc
[2020-08-17] MEDS: fentaNYL CITRATE INJ (*CRX) 100 MCG/2 ML VIAL 25 MCG IV PUSH ×2 (21:52→22:46)
[2020-08-17] MEDS: FAMOTIDINE 20 MG/2 ML VIAL IV PUSH (22:58)
[2020-08-17] MEDS: OXYTOCIN 30 UNITS/NS 500 ML 30 UNITS/500 ML BAG 125 UNITS IV CONT (23:41)
--- NOTE | 2020-08-17 23:50 | OBPPTRN ---
Patient transferred to post room # 288 via bed. Support person present. Oriented to unit, room, information board, rooming in, admission packet and security measures. Patient verbalizes understanding.
[2020-08-18] VITALS (12 sets, daily range): BP systolic 100–140; BP diastolic 64–96; PULSE 77–103; RESP 16–18; TEMP 36.3–37.4; O2SAT 96–100
[2020-08-18] MEDS: PROMETHAZINE HCL 25 MG/ML AMPUL 12.5 MG IV PUSH (00:36)
[2020-08-18] MEDS: KETOROLAC 30 MG/ML VIAL (*BKC) IV PUSH ×2 (00:36→08:20)
[2020-08-18 05:13] LABS: Basophils Percent Auto 0.1 % (0.2-1.2); Hematocrit 35.5 % (37.0-47.0); Hemoglobin 12.2 g/dL (12.0-15.0); Immature Granulocyte Absolute 0.07 K/mm3 (0.00-0.031); Immature Granulocyte Percent A 0.5 % (0-0.5); Lymphocytes Percent Auto 9.9 % (18.3-44.2); Mean Corpuscular HGB Conc 34.4 g/dl (32-36); Mean Corpuscular Hemoglobin 32.8 pg (26-34); Mean Corpuscular Volume 95.4 fl (80-100); Mean Platelet Volume 11.9 fl (7.4-10.4); Monocytes Absolute Auto 0.7 K/mm3 (0.1-0.6); Monocytes Percent Auto 4.3 % (2.6-8.5); Neutrophils Absolute Auto 12.9 K/mm3 (1.3-6.7); Neutrophils Percent Auto 85.2 % (45.5-73.1); Platelet Count Result 182 k/mm3 (150-375); Red Blood Count 3.72 M/mm3 (4.2-5.4); White Blood Count 15.2 K/mm3 (4.5-10.0)
[2020-08-18] MEDS: DEXTROSE 5%/0.45% SOD CHL 1,000 ML 125 ML IV CONT (06:32)
[2020-08-18] MEDS: DOCUSATE SODIUM 100 MG CAPSULE PO ×2 (08:21→16:51)
--- NOTE | 2020-08-18 08:56 | WPDANLDPN2 ---
Anes-Prog Note L&D Date/Time: 08/18/20 08:56 Comfortable throughout: section Neuraxial method: spinal Epidural/Spinal procedure site: clean & non-tender Neuro status: Neuro function grossly intact. Cardiovascular status: normal Respiratory status: normal Airway patency: baseline Mental status: baseline Post-Op hydration status: normal Vital Signs: Last Vital Signs Temp 36.3 C L 08/18/20 00:16 Pulse 85 08/18/20 04:30 Resp 16 08/18/20 04:30 BP 133/96 H 08/18/20 04:30 Pulse Ox 100 08/18/20 04:30 Pain score (VAS): 0 I/O: Intake & Output 08/17/20 08/18/20 08/18/20 23:59 07:59 15:59 Intake Total 100 500 Output Total 175 227 Balance -75 273 Post-procedural complaints: nausea moderate, treatment effective and vomiting Patient feedback: Patient satisfied with anesthetic care.
--- NOTE | 2020-08-18 08:58 | WPDANLDNPN2 ---
Anes-Prog Note L&D-Neuraxial Date/Time: 08/18/20 08:58 Neuraxial medications: intrathecal PF morphine Opiod-related complaints: nausea moderate, treatment effective Patient feedback: Patient satisfied with post-operative pain management.
[2020-08-18 09:25] LABS: Rapid Plasma Reagin Non-Reactive (NonReactive)
[2020-08-18] MEDS: FAMOTIDINE 20 MG TABLET PO (10:17)
[2020-08-18] MEDS: IBUPROFEN 600 MG TABLET PO ×2 (16:50→22:31)
[2020-08-18] MEDS: oxyCODONE/ACETAMINOPHEN (*CRX) 5-325 MG TABLET 2 TABLET PO (16:58)
[2020-08-18] MEDS: oxyCODONE/ACETAMINOPHEN (*CRX) 5-325 MG TABLET 1 TABLET PO (22:32)
[2020-08-19] MEDS: oxyCODONE/ACETAMINOPHEN (*CRX) 5-325 MG TABLET 1 TABLET PO ×4 (02:42→17:31)
[2020-08-19] MEDS: IBUPROFEN 600 MG TABLET PO ×3 (05:45→19:01)
[2020-08-19 08:45] VITALS: PULSE 98; RESP 20; O2SAT 98
[2020-08-19 09:00] VITALS: BP 135/84; PULSE 98; RESP 20; TEMP 36.3; O2SAT 98
[2020-08-19] MEDS: FAMOTIDINE 20 MG TABLET PO ×2 (09:42→17:31)
[2020-08-19] MEDS: DOCUSATE SODIUM 100 MG CAPSULE PO ×2 (09:42→17:31)
[2020-08-19] MEDS: SIMETHICONE 80 MG TAB.CHEW PO (12:34)
--- NOTE | 2020-08-19 15:03 | P.PNOB_ITS ---
OB - PN: Subj Subjective Date/time seen: 08/19/20 15:03 POD#2 Kiara reports doing well. She is ambulating w/o issue (just took shower). She has tolerated regular diet w/o N/V. She has voided spontaneously. She has passed gas. Her pain is well controlled. Her bleeding is light. She is bottle feeding. She denies N/V, CRAIG, vision changes, CP, SOB, fever, chills, dizziness or palpitations. OB - PN: Obj Data Labs CBC & Chem 7: 08/18/20 04:45 OB - PN A/P Assessment and Plan (1) Status post repeat low transverse section: Code(s): Z98.891 - History of uterine scar from previous surgery Status: Acute Plan day: 2 Plan: routine care and discharge home Comments: f/u 2wks for incision check. ER return precautions discussed: fever, n/v/abd pain, bleeding, HTN. Check incision; keep clean. Pelvic rest/no heavy lifting. Take meds as prescribed. Time Spent With Patient Time: Total time spent is greater than 50% in coordination of care (as do cumented) at patient's floor/unit and/or counseling patient: Review of Systems Review of Systems: All systems reviewed & are unremarkable except as noted in HPI and below (HPI) Exam Const: General: cooperative, healthy appearing, comfortable and no acute distress Nutritional Appearance: obese centrally obese Resp: Effort & Inspection: normal respiratory effort and able to speak in complete sentences Auscultation: clear to auscultation bilaterally Cardio: Rate: regular rate GI: Inspection: non-distended and incision (pfannenstiel; covered w/ clean dressing) GI Palp: Yes abdominal tenderness (appropriate) and Yes Soft to palpation Auscultation: normal bowel sounds : Other: fundus firm below umbilicus; normal lochia Skin: General skin exam: normal color Neuro: General: patient oriented x3 Extrem: General: normal to inspection Psych: Appearance: grossly normal Affect: normal affect Attitude: cooperative
[2020-08-20 08:51] VITALS: BP 131/82; PULSE 106; RESP 20; TEMP 36.7; O2SAT 99
--- NOTE | 2020-08-20 12:31 | PM.OBDSVD ---
DS: Admitting Diagnosis Admitting Diagnosis Admitting Diagnosis: leakage of fluid DS: Discharge Diagnosis Discharge Diagnosis (1) Status post repeat low transverse section: Code(s): Z98.891 - History of uterine scar from previous surgery Status: Acute (2) Rupture of membranes with clear amniotic fluid: Status: Acute (3) Previous section: Code(s): Z98.891 - History of uterine scar from previous surgery Status: Acute OB - DS: Summary OB Procedures : Ultrasound and PTL Mgmt OB Procedures Intrapartum: low cervical, transverse OB Procedures: : None Peripartum Data Infant Delivery Method: Section Procedures: Procedures Operation Date: 08/17/20 20:00 <No data on this case meets the specified criteria> Operation Date: 08/17/20 20:00 Actual Procedures Side Surgeon p Section Not Applicable Meryl Merlos MD complications: none [place] 1: Gender: Male Disposition of : home Status at Discharge Functional status at discharge: independent ambulation Overall status at discharge: patient is back to baseline Time Spent with Patient Time attestation: Total time spent providing and/or coordinating discharge services: Time spent: Less than 30 minutes Exam Const: General: cooperative, healthy appearing, comfortable and no acute distress Resp: Effort & Inspection: normal respiratory effort and able to speak in complete sentences Cardio: Rate: regular rate GI: Inspection: normal to inspection, non-distended and incision (pfannenstiel incision covered with clean dressing) GI Palp: Yes Soft to palpation Auscultation: normal bowel sounds : Other: fundus firm below umbilicus Skin: General skin exam: normal color Neuro: General: patient oriented x3 Extrem: General: normal to inspection Psych: Appearance: grossly normal Affect: normal affect Attitude: cooperative DS: Data Data Completed and Pending Completed studies during hospitalization: Pending at discharge 08/17/20 20:34 Surgical [PTH] Routine Discharge Plan Discharge Attending physician on discharge: Meryl Merlos Discharging Clinician: Meryl Merlos Patient Disposition: Home, Self-Care Activity: may shower, no straining and pelvic rest Diet: regular Discharge Instructions: Education: Mom and Baby Guide Given to: Mother Follow-Up: Call your delivering provider's office for an appointment to be seen in: 2 Weeks Mom and baby should come to the [facility] for the follow-up appointment. Appointment Date/Time: August 20, 2020 at 9:00 am What to expect at your follow-up visit: Blood Pressure Check Physical Assessment Call [phone] if you are unable to keep your appointment time. BREAST CARE: * Wear a snug supportive bra. * For engorgement discomfort: Breast Feeding: * Apply warm moist washcloths * Express milk as needed to relieve engorgement * Wear loose clothing Bottle Feeding: * May apply ice packs * For sore nipples: * Identify correct latch-on * Apply warm moist washcloths before and after nursing * Air dry nipples after nursing * May apply Lansinoh cream to nipples ABDOMINAL INCISION: (if applicable) * Allow incision to air dry * Do NOT use lotions for powders on your incision * When showering, allow soap and water to run over the incision, but do not wash incision EPISIOTOMY/PERINEAL CARE: * Until bleeding stops, use your april bottle after urinating * Change your pad frequently throughout the day * You may take sitz baths several times a day (fill your bathtub with warm water and soak for 20 minutes.) Do NOT bathe in the water * No tub baths until seen by your physician - You may shower ACTIVITY: * Rest as much as possible. * Do not exercise or lift any
== END 2020-08-19 19:38 | disposition home or self-care (01) | DRG 540 ==
LOC: ANHLDR 23:10 → ANHOB2 08-18 07:09 → ANHLDR 08-20 13:20 → ANHOB2 08-20 13:20
PROVIDERS: Admitting Provider Obstetrics & Gynecology; PCP Family Medicine; Visit Provider Obstetrics & Gynecology
PROC: 10D00Z1 Extraction of Products of Conception, Low, Open Approach (ICD-10-PCS; CPT 59514; principal; 2020-08-17 20:00)
DX: O42.92 Full-term premature rupture of membranes, unspecified as to length of time between rupture and onset of labor (principal); Z37.0 Single live birth; Z3A.38 38 weeks gestation of pregnancy; O34.211 Maternal care for low transverse scar from previous cesarean delivery; O40.3XX0 Polyhydramnios, third trimester, not applicable or unspecified; O99.214 Obesity complicating childbirth; E66.9 Obesity, unspecified
CPT/HCPCS: 36415; 84112; 85025; 86592; 86703; 86850; 86900; 86901; 88307; A9270; G0432; J0131; J1885; J2274; J2405; J2550; J2590; J2704; J3010; J7120